=== PATIENT | male | born 1950 | race Caucasian/White ===

== ENCOUNTER 2020-11-11 07:11 | Day surgery (SDC) | payer MEDICARE, BC ==
[~2020-11-11 07:11] MED LIST: Lactated Ringers 1,000 ML IV SCH
[2020-11-11] MEDS ORDERED: fentaNYL 100 MCG/2 ML SDV ONE (08:08)
[2020-11-11] MEDS ORDERED: Propofol 200 MG/20 ML SDV ONE ×2 (08:08→08:25)
[2020-11-11 09:07] VITALS: BP 133/91; PULSE 75
--- NOTE | 2020-11-11 11:54 | OR ---
PREOPERATIVE DIAGNOSIS: History of colon polyps. Last colonoscopy was 2015. There is no family history of colon cancer. POSTOPERATIVE DIAGNOSES: 1. Flat area of irregularity located within the cecum. This was photographed and then cold biopsy x1 bite taken. The area did bleed easily and there was very small pulsatile vessel noted. This did stop on its own, but for good measure, a clip was placed. I suspect this area may represent area of angiodysplasia. 2. Mild left-sided diverticulosis. 3. Normal-appearing distal ileum. PROCEDURE: Colonoscopy with cold biopsy x1 site. Clip placed at this site as well. SURGEON: Grayson Espinosa M.D. ANESTHESIA: Monitored anesthesia care. BOWEL PREP: Good. DESCRIPTION OF PROCEDURE: The patient is a 70-year-old male who was brought to the endoscopy suite after discussing risks and benefits of the procedure. Informed consent was obtained for conscious sedation and colonoscopy with or without biopsy and/or polypectomy. We also discussed possibility of missed lesions. Pre-procedure exam was unremarkable. IV, oxygen, and monitors were placed. The patient was placed in the left lateral decubitus position. Sedation was administered and a digital rectal exam was performed and unremarkable. Colonoscope was passed into the rectum and slowly advanced all the way to the cecum. Cecum was viewed and photographed. There was a flat area of irregularity within the cecum. This was biopsied x1 bite using cold forceps. The area did bleed easily. Upon close inspection, there was a small vessel that pulsated. This actually did stop on its own, but I did place a clip at the site to limit any chance of rebleed. I suspect this area represents area of angiodysplasia. The ileocecal valve was intubated. Distal ileum was normal in appearance. The colonoscope was slowly withdrawn and the mucosa was closed observed in a direct circumferential manner. The ascending colon was unremarkable. The transverse colon was unremarkable. The descending and sigmoid colon revealed some mild diverticulosis. Retroflexion was performed. Rectal mucosa unremarkable. Scope was removed. The patient tolerated the procedure well. The patient was monitored until that baseline status. Discharge instructions were reviewed and the patient was discharged in good condition. COMPLICATIONS: None. TOTAL TIME: 20 minutes. ESTIMATED BLOOD LOSS: 2 to 3 mL. RECOMMENDATIONS/FOLLOW-UP: We will await results of path report to determine ideal followup interval. We discussed with the patient that the clip should pass on its own here in the next couple of weeks. I will have him hold his aspirin for 3 days to limit any chance of bleeding from the biopsy site. I would like to kindly thank Lisha Krause for this referral. DMB: 11/11/2020 10:11:10 MODL: 11/11/2020 11:28:15 /[id number]
== END 2020-11-11 09:50 | disposition home or self-care (01) ==
LOC: VM.SDS 07:11
PROVIDERS: ATTEND Family Medicine
DX: Z12.11 Encounter for screening for malignant neoplasm of colon (principal); K52.832 Lymphocytic colitis; K57.30 Diverticulosis of large intestine without perforation or abscess without bleeding; I25.118 Atherosclerotic heart disease of native coronary artery with other forms of angina pectoris; M15.9 Polyosteoarthritis, unspecified; I10 Essential (primary) hypertension; E78.5 Hyperlipidemia, unspecified; E66.9 Obesity, unspecified; I25.2 Old myocardial infarction; Z86.010 Personal history of colon polyps; Z01.812 Encounter for preprocedural laboratory examination; Z91.041 Radiographic dye allergy status; Z20.822 Contact with and (suspected) exposure to COVID-19; Z98.890 Other specified postprocedural states; Z79.1 Long term (current) use of non-steroidal anti-inflammatories (NSAID); Z95.1 Presence of aortocoronary bypass graft; Z79.899 Other long term (current) drug therapy; Z87.891 Personal history of nicotine dependence; Z79.82 Long term (current) use of aspirin; Z68.32 Body mass index [BMI] 32.0-32.9, adult
CPT/HCPCS: 00812; 88305; J2704; J3010; J7120; U0002